=== PATIENT | male | born 2000 | race Caucasian/White ===

== ENCOUNTER 2022-02-11 01:08 | Emergency (ER) | payer BC, SELFPAY ==
[2022-02-11] VITALS (8 sets, daily range): BP systolic 100–118; BP diastolic 50–71; PULSE 66–119; RESP 12–29; TEMP 36.3–36.8; O2SAT 95–100; BMI 22.4
--- NOTE | 2022-02-11 01:43 | ED.ALCOHOL ---
HPI - Alcohol General Chief Complaint: ETOH/Substance Use Stated Complaint: Alcohol induced Time Seen by Provider: 02/11/22 01:13 Source: EMS Mode of arrival: EMS History of Present Illness HPI narrative: 21-year-old male who is dropped off by his friends who states that he is been drinking ?[place]? although patient denies drinking alcohol or doing drugs. Related Data Allergies Allergy/AdvReac Type Severity Reaction Status Date / Time Unable to Assess Allergy Verified 02/11/22 01:13 Review of Systems Review of Systems: Pertinent positives and negatives as stated in HPI 10 point review of systems is otherwise negative. PMFSH Past Medical History Source: nursing notes reviewed Physical Exam ED Vital Signs: Vital Signs - 24 hr 02/11/22 01:14 02/11/22 02:07 Temperature 98.1 F Pulse Rate 66 81 Respiratory Rate 18 17 Blood Pressure 113/61 104/59 L Pulse Oximetry 97 97 Oxygen Delivery Method Nasal Cannula Nasal Cannula Oxygen Flow Rate 2 BMI result Body Mass Index 22.4 VITAL SIGNS: Reviewed. GENERAL: Well developed, well nourished, in no acute distress. HEAD: Normocephalic/atraumatic EYES: PERRLA, EOMI EARS: Ext canals without abnormality NOSE: Nares patent bilateral OROPHARYNX: no oral lesions noted, posterior pharynx clear NECK: Supple, no adenopathy LUNGS: Normal breath sounds. No adventitious sounds or accessory muscle use. SpO2<97> CARDIOVASCULAR: Regular rate and rhythm without noted murmurs ABDOMEN: Soft, non-tender, non-distended with bowel sounds. MUSCULOSKELETAL: No tenderness, deformities, or effusions noted on gross inspection. EXTREMITIES: No cyanosis, clubbing or edema. SKIN: Inspection of the skin reveals no rashes NEUROLOGIC: Sleeping but arousable and oriented x 2. Strength and sensation to light touch were grossly intact x 4. Course Course Course Narrative: 21-year-old male with history and clinical presentation consistent with alcohol intoxication, overdose. BAL-249 Reevaluation(s) Reevaluation #1: Patient placed in physician observation because the patient needed more time to become sober. At the time observation was started the patient's vital signs were stable, patient is alert and oriented, neuro: Nonfocal, CV RRR, lungs clear. Time: 02:45 MDM - Alcohol Lab Data Labs: Lab Results 02/11/22 Range/Units 01:42 Ethyl Alcohol 249 mg/dL Discharge Plan Discharge Clinical Impression: Alcoholic intoxication Patient Disposition: Still a Patient
[2022-02-11] MEDS: 0.9 % Sodium Chloride 1,000 ML 999 ML IV ×2 (01:44→04:24)
[2022-02-11 02:03] LABS: Ethanol 249 mg/dL
[2022-02-11 08:26] LABS: Amphetamine Screen Urine Not Detected (Not Detect); Barbiturates, Urine Not Detected (Not Detect); Benzodiazepines Screen Urine Not Detected (Not Detect); Cannabinoid Screen Urine Not Detected (Not Detect); Cocaine Screen Urine Not Detected (Not Detect); Fentanyl, urine Not Detected (Not Detect); Opiate Screen Urine Not Detected (Not Detect); Phencyclidine Screen Urine Not Detected (Not Detect)
== END 2022-02-11 10:38 | disposition home or self-care (01) ==
PROVIDERS: Emergency Provider Student in an Organized Health Care Education/Training Program
DX: F10.920 Alcohol use, unspecified with intoxication, uncomplicated (principal); Y90.8 Blood alcohol level of 240 mg/100 ml or more
CPT/HCPCS: 36415; 80307; 82077; 96360; 96361; 99285